=== PATIENT | female | born 1970 | race Caucasian/White ===

== ENCOUNTER → 2020-05-01 15:01 | Outpatient (BNVA) | payer MEDICAID, SELFPAY | PROVIDERS: PCP Internal Medicine; Visit Provider Surgery | DX: R92.8 Other abnormal and inconclusive findings on diagnostic imaging of breast (principal); K21.9 Gastro-esophageal reflux disease without esophagitis; Z88.0 Allergy status to penicillin; Z79.899 Other long term (current) drug therapy | CPT/HCPCS: 99212 ==

== ENCOUNTER 2020-05-22 08:42 | Outpatient (REF) | payer MEDICAID, SELFPAY ==
--- NOTE | 2020-05-22 08:51 | MM_ITS ---
EXAMINATION: MM DIAGNOSTIC DIGITAL BREAST TOMOSYNTHESIS, BILATERAL US DIAGNOSTIC ULTRASOUND BREAST, LEFT CLINICAL INFORMATION: Stereotactic biopsy left upper outer breast for architectural distortion 10/25/2018 (benign breast parenchyma with florid usual ductal hyperplasia, fibrocystic changes, focal adenosis, columnar cell change and fibrosis, microcalcifications identified). Biopsy was considered possibly discordant from imaging expectations. Open surgical biopsy recommended but declined by patient and family. Due for yearly exam. The lifetime risk of breast cancer based on the Tyrer-Cuzick Model is 15%. COMPARISON: Mammography: 10/09/2019, 04/18/2019, 10/25/2018 (post stereotactic), 10/05/2018, 03/23/2018 TECHNIQUE: Digital breast tomosynthesis is performed in both the craniocaudal and mediolateral oblique views along with computer-aided detection (CAD). Synthesized 2D images are generated from the tomosynthesis. Additional right MLO view is provided. Ultrasound left breast is targeted to the outer quadrant. Grayscale imaging and color Doppler are performed without and with harmonics. FINDINGS: The breasts are heterogeneously dense, which may obscure small masses (ACR BI-RADS breast composition Category c). Breast tissue composition borders on average fibroglandular. Neither breast shows interval mass or architectural abnormality or interval abnormal calcifications. The skin contours are smooth. Architectural changes upper outer left breast with central biopsy clip marker is stable. There is no developing density or increasing architectural change. There is also a biopsy clip marker again seen anterior 12:30 o'clock left breast. Targeted ultrasound left breast demonstrates stable postbiopsy changes with specular echo and posterior shadowing corresponding to the biopsy clip marker and biopsy site. There is no interval mass or interval architectural abnormality. No focal duct ectasia. Results are discussed with the patient at time of visit. Management plan is for diagnostic mammography and targeted left breast ultrasound at next bilateral annual exam, due in 12 months to complete long-term diagnostic surveillance. MM/MM diagnostic mammo BI IMPRESSION: 1. Left: Stable architectural changes with central biopsy clip marker outer left breast. 2. Right: No mammographic evidence of malignancy. ASSESSMENT: BI-RADS 3: Probably Benign RECOMMENDATION: 1. Diagnostic mammography at time of next annual exam, due in 12 months. 2. Targeted ultrasound left breast at time of annual diagnostic exam. This patient's information was entered into a reminder system with a target due date for their next mammogram.
== END 2020-05-22 08:43 | disposition home or self-care (01) ==
LOC: HO.MAMMO 08:42
PROVIDERS: Visit Provider Surgery
DX: R92.8 Other abnormal and inconclusive findings on diagnostic imaging of breast (principal)
CPT/HCPCS: 76642; 77066

== ENCOUNTER 2020-11-08 09:35 | Outpatient (REF) | payer MEDICAID, SELFPAY ==
[2020-11-08 11:54] LABS: Alanine Aminotransferase 24 U/L (0-31); Albumin Level 4.5 g/dL (3.5-5.0); Alkaline Phosphatase 47 U/L (39-117); Anion Gap 11 (12-20); Aspartate Amino Transferase 22 U/L (5-31); Bilirubin Total 0.5 mg/dL (0.0-1.0); Blood Urea Nitrogen 10 mg/dL (9-16); Calcium 9.9 mg/dL (8.4-10.2); Carbon Dioxide 27 mmol/L (22-29); Chloride 107 mmol/L (96-108); Cholesterol 200 mg/dL; Estimated Glomerular Filt Rate > 60; Glucose Random 93 mg/dL (60-115); HDL Cholesterol 50 mg/dL; LDL Cholesterol Calculated 131 mg/dl; Potassium 4.9 mmol/L (3.3-5.1); Sodium 140 mmol/L (135-145); Total Protein 6.9 g/dL (6.5-8.0); Triglycerides 96 mg/dL
[2020-11-08 11:58] LABS: Hematocrit 40.1 % (37-47); Hemoglobin 13.1 g/dl (12.0-16.0); Mean Corpuscular HGB Conc 32.7 g/dl (31.0-35.0); Mean Corpuscular Hemoglobin 29.6 pg (27.0-33.0); Mean Corpuscular Volume 90.7 fL (80-98); Mean Platelet Volume 9.8 fL (9.4-12.3); Platelet Count 402 X10*3/uL (160-400); Red Blood Count 4.42 X10*6/uL (4.20-5.50); Red Cell Distribution Width 13.3 % (11.0-16.0); White Blood Count 6.2 X10*3/uL (4.8-10.8)
[2020-11-08 12:16] LABS: Thyroid Stimulating Hormone 1.44 uIU/mL (0.32-4.0); Vitamin D 25-OH Total 46.2 ng/mL (>30)
[2020-11-08 12:17] LABS: Glucose Urine UA NEG (NEG); Leukocyte Esterase Urine NEG (NEG); Nitrite Urine NEG (NEG); PH 7.5 (5.0-8.0); Urine Blood NEG (NEG); Urine Ketones NEG (NEG); Urine Protein NEG (NEG-TRACE)
[2020-11-08 12:20] LABS: Appearance Urine HAZY; Color Urine YELLOW
[2020-11-11 07:54] LABS: ~HepC Num1 0.04 S/CO (0.00-0.79); ~Hepatitis C Antibody Nonreactive (Nonreactive)
== END 2020-11-08 09:36 | disposition home or self-care (01) ==
LOC: HO.LAB 09:35
PROVIDERS: Nurse Practitioner Family; Absent Provider Internal Medicine; PCP Internal Medicine; Referring Provider Internal Medicine; Visit Provider Surgery
DX: Z00.00 Encounter for general adult medical examination without abnormal findings (principal); E78.2 Mixed hyperlipidemia; E66.3 Overweight; R35.0 Frequency of micturition; E55.9 Vitamin D deficiency, unspecified; R92.8 Other abnormal and inconclusive findings on diagnostic imaging of breast; Z88.0 Allergy status to penicillin; Z79.899 Other long term (current) drug therapy
CPT/HCPCS: 36415; 80053; 80061; 81003; 82306; 84443; 85027; 86803; 99212

== ENCOUNTER 2021-06-06 09:18 | Outpatient (REF) | payer MEDICAID, SELFPAY ==
--- NOTE | ~2021-06-06 | MM_ITS ---
EXAMINATION: MM DIAGNOSTIC DIGITAL BREAST TOMOSYNTHESIS, BILATERAL US DIAGNOSTIC ULTRASOUND BREAST, LEFT CLINICAL INFORMATION: Stereotactic biopsy left upper outer breast for architectural distortion 10/25/2018 (benign breast parenchyma with florid usual ductal hyperplasia, fibrocystic changes, focal adenosis, columnar cell change and fibrosis, microcalcifications identified). Biopsy was considered possibly discordant from imaging expectations. Open surgical biopsy recommended but declined by patient and family. Due for yearly exam. The lifetime risk of breast cancer based on the Tyrer-Cuzick Model is 11%. COMPARISON: Mammography: 05/22/2020, 10/09/2019, 04/18/2019, 10/25/2018 (post stereotactic), 10/05/2018, 03/23/2018. Ultrasound left breast 05/22/2020, 10/09/2019. TECHNIQUE: Digital breast tomosynthesis is performed in both the craniocaudal and mediolateral oblique views along with computer-aided detection (CAD). Synthesized 2D images are generated from the tomosynthesis. Ultrasound left breast is targeted to the upper outer quadrant. FINDINGS: The breasts are heterogeneously dense, which may obscure small masses (ACR BI-RADS breast composition Category c). Parenchymal pattern is similar to prior studies. There are scattered stable asymmetries. Right breast is unremarkable with no significant mass or architectural abnormality. Neither breast shows abnormal calcifications. The axilla and skin contours are unremarkable. The architectural changes posterior upper outer left breast are stable. There is a biopsy clip marker in the center of the architectural changes corresponding to the stereotactic sampling in 2019. There is also a ribbon shaped biopsy clip marker anterior upper outer left breast. There are some scattered punctate calcifications in the breast as before. Ultrasound left breast demonstrates specular echo within hypoechoic area with strong posterior shadowing corresponding to the biopsy clip marker and biopsy site and architectural changes. Appearance is similar to prior exams considering variation and transducer orientation. Results are discussed with the patient and family at time of visit. The lack of significant changes in the sampled area left breast is reassuring. Patient has upcoming appointment with surgeon this month. MM/MM tomosynthesis diagnostic BI IMPRESSION: 1. Left: Stable architectural changes upper outer left breast with central biopsy clip marker. 2. Right: No mammographic evidence of malignancy. ASSESSMENT: BI-RADS 2: Benign RECOMMENDATION: 1. Continue with surgical appointment planned for this month. 2. Annual bilateral mammography. This patient's information was entered into a reminder system with a target due date for their next mammogram.
== END 2021-06-06 09:19 | disposition home or self-care (01) ==
LOC: HO.MAMMO 09:18
PROVIDERS: PCP Internal Medicine; Visit Provider Surgery
DX: R92.8 Other abnormal and inconclusive findings on diagnostic imaging of breast (principal)
CPT/HCPCS: 76642; 77062; 77066

== ENCOUNTER → 2021-07-25 10:38 | Outpatient (BNVA) | payer MEDICAID, SELFPAY | PROVIDERS: PCP Internal Medicine; Referring Provider Internal Medicine; Visit Provider Surgery | DX: R92.8 Other abnormal and inconclusive findings on diagnostic imaging of breast (principal) | CPT/HCPCS: 99212 ==

== ENCOUNTER 2022-06-05 10:33 | Outpatient (REF) | payer MEDICAID, SELFPAY ==
--- NOTE | ~2022-06-05 | MM_ITS ---
EXAMINATION: MM SCREENING DIGITAL BREAST TOMOSYNTHESIS, BILATERAL CLINICAL INFORMATION: Screening. Asymptomatic. Stereotactic biopsy left upper outer breast for architectural changes 10/25/2018 (benign breast parenchyma with florid usual ductal hyperplasia, fibrocystic changes, focal adenosis, columnar cell change and fibrosis, microcalcifications identified). The lifetime risk of breast cancer based on the Tyrer-Cuzick Model is 11%. COMPARISON: Mammography: 06/06/2021, 05/22/2020, 10/09/2019, 04/18/2019, 10/05/2018, 03/23/2018 TECHNIQUE: Digital breast tomosynthesis is performed in both the craniocaudal and mediolateral oblique views along with computer-aided detection (CAD). Synthesized 2D images are generated from the tomosynthesis. FINDINGS: The breasts are heterogeneously dense, which may obscure small masses (ACR BI-RADS breast composition Category c). Parenchymal pattern is similar to prior exams and there is no interval mass or developing density or interval architectural changes. No abnormal calcifications. Left breast again has biopsy clip marker overlying stable architectural changes posterior upper outer quadrant. There is a clip marker also noted anterior upper outer left breast. The axilla and skin contours are unremarkable. MM/MM tomosynthesis screening BI IMPRESSION: No significant changes from prior studies. ASSESSMENT: BI-RADS 2: Benign RECOMMENDATION: Routine annual mammography screening. This patient's information was entered into a reminder system with a target due date for their next mammogram.
== END 2022-06-05 10:34 | disposition home or self-care (01) ==
LOC: HO.MAMMO 10:33
PROVIDERS: PCP Nurse Practitioner Family; Visit Provider Surgery
DX: Z12.31 Encounter for screening mammogram for malignant neoplasm of breast (principal)
CPT/HCPCS: 77063; 77067

== ENCOUNTER → 2022-08-21 09:43 | Outpatient (BNVA) | payer MEDICAID, SELFPAY | PROVIDERS: PCP Nurse Practitioner Family; Visit Provider Surgery | DX: R92.8 Other abnormal and inconclusive findings on diagnostic imaging of breast (principal) | CPT/HCPCS: 99212 ==

== ENCOUNTER → 2022-09-11 09:31 | Day surgery (SDC) | payer MEDICAID, SELFPAY ==
--- NOTE | 2022-09-10 10:50 | P.CONAN_ITS ---
Documented by User: Jessika Gomez NP 09/10/22 10:50 HPI - Anesthesia Eval Consult details Narrative: 52yo F for Colonoscopy [facility] Active Problems Active Problems: All Active Problems (Updated 05/01/20 @ 15:21 by Omid Redd, RN) Abnormal mammogram of left breast (Acute) Past Medical History Medical History GERD (gastroesophageal reflux disease) Overactive bladder Family History Family History Mother Diabetes Paternal Uncle Brain cancer Surgical History Surgical History History of epidermal inclusion cyst excision History of left breast biopsy Social History Social History Alcohol intake: never Patient Tobacco Use Status: Never used Tobacco Are you DNR?: No Advance Directives: No Advance Directives Information Provided: Yes Nutrition Risks: No Nutritional Risk Meds Allergies Allergy/AdvReac Type Severity Reaction Status Date / Time penicillin G Allergy Unknown vomiting Verified 09/11/22 10:19 Home Medications Medication Instructions Recorded Confirmed Last Taken Type loratadine 10 mg tablet (Claritin) 10 mg PO DAILY 05/01/20 08/21/22 Unknown History omeprazole 20 mg capsule,delayed 20 mg PO DAILY 05/01/20 08/21/22 Unknown History release tolterodine 2 mg capsule,extended 1 cap PO DAILY 09/10/22 09/10/22 Unknown History release 24 hr Exam Exam Date and Time: September 10, 2022 105 Assessment and Plan Assessment Anesthesia Assessment: Chart Reviewed Documented by User: Roseline Harding MD 09/11/22 11:20 [facility] Past Medical History Medical History GERD (gastroesophageal reflux disease) Overactive bladder Family History Family History Mother Diabetes Paternal Uncle Brain cancer Surgical History Surgical History History of epidermal inclusion cyst excision History of left breast biopsy History of Problems with Anesthesia: No Social History Social History Alcohol intake: never Patient Tobacco Use Status: Never used Tobacco Are you DNR?: No Advance Directives: No Advance Directives Information Provided: Yes Nutrition Risks: No Nutritional Risk Meds Allergies Allergy/AdvReac Type Severity Reaction Status Date / Time penicillin G Allergy Unknown vomiting Verified 09/11/22 10:19 Home Medications Medication Instructions Recorded Confirmed Last Taken Type loratadine 10 mg tablet (Claritin) 10 mg PO DAILY 05/01/20 08/21/22 Unknown History omeprazole 20 mg capsule,delayed 20 mg PO DAILY 05/01/20 08/21/22 Unknown History release tolterodine 2 mg capsule,extended 1 cap PO DAILY 09/10/22 09/10/22 Unknown History release 24 hr Exam Airway Mallampati Class: III TM Dist: >3cm Neck ROM: Full Loose/Missing/Broken Teeth: No Heart: RRR Lungs: CTA Assessment and Plan Final Anesthetic Review History of Problems with Anesthesia: No NPO: Yes ASA Class: II Final Preanesthetic Review: Meds/Allgs Chart Reviewed, Consent Obtained/Reviewed and Anes Risks/Benef Reviewed Patient Risk: Low Procedure Risk: Low Anesthetic Plan Anesthetic Plan: MAC: Disposition: Standard PACU
[2022-09-11 10:07] VITALS: BMI 26.4
[2022-09-11] MEDS: Lactated Ringers 1,000 ML 100 ML IVCONT (10:32)
[2022-09-11 10:41] VITALS: BP 125/63; PULSE 73; RESP 18; TEMP 36.8; O2SAT 99
--- NOTE | 2022-09-11 11:19 | PC.NURSE ---
Per Jamey Romano, area director, anesthesia can write on their consent that patient denies any chance of and unable to urinate refusing u preg test. Patient states has a sporadic menstrual cycle and states has no boyfriend. Dr. Meaghan vera.
--- NOTE | 2022-09-11 11:19 | MHC.SHP ---
Pre-Procedural Eval Section A Date of Service: 09/11/22 Section B Chief Complaint: screening Details of Present Illness: see H&P no changes Relevant Family History (Specify if Yes): No Relevant Social History: None Present Medications: see Short Stay Collaborative assessment Medical History: No relevant PMH History of Previous Operations: No relevant previous surgery Allergies: Allergies Allergy/AdvReac Type Severity Reaction Status Date / Time penicillin G Allergy Unknown vomiting Verified 09/11/22 10:19 Review of Systems Sugical H&P ROS: Negative: Constitution, Cardiovascular, Respiratory, Neurological, Psychiatric, Hem-Onc, Allergic/Immunologic, Gastrointestinal, Genitourinary, Musculoskeletal, Integumentary, Endocrine and Eyes/Ears/Nose/Throat Exam Surgical H&P Exam: Normal: HEENT, Normal: Heart, Normal: Lungs, Normal: Extremities, Normal: Abdomen, Normal: Skin and Normal: Neurological Plan Diagnosis/Plan: Unchanged I have reviewed the history and physical and performed a pertinent physical examination on my patient. No changes have occurred unless specified. Time Spent With Patient Time: Total time managing care of this patient today ____ minutes.
[2022-09-11 11:50] VITALS: BP 99/54; PULSE 70; RESP 20; TEMP 36.7; O2SAT 99
--- NOTE | 2022-09-11 11:54 | PM.OP ---
Brief Operative Note Date of Service: 09/11/22 Pre-op diagnosis: screening Post-op diagnosis: same Procedure: colonoscopy Surgeon: José Rose Anesthesia: MAC Was an Cashier Ticket Selling used for this Procedure?: No Estimated blood loss (mL): 0 Pathology: none sent Condition: stable Disposition: PACU
[2022-09-11 12:12] VITALS: BP 108/67; PULSE 62; RESP 16; TEMP 36.7; O2SAT 100
--- NOTE | 2022-09-11 12:12 | OP_ITS ---
SURGEON: José Rose MD INDICATIONS: Colon cancer screening. PREOPERATIVE DIAGNOSIS: POSTOPERATIVE DIAGNOSIS: PROCEDURE PERFORMED: Colonoscopy to the terminal ileum. ESTIMATED BLOOD LOSS: COMPLICATIONS: ANESTHESIA: Monitored anesthesia care. ASSISTANTS: SPECIMENS: DESCRIPTION OF PROCEDURE: The procedure was performed on 09/11/2022. A history and physical was performed. The risks and benefits of the procedure were explained to the patient. Informed consent was obtained. The patient was placed in the left lateral decubitus position. A digital rectal exam was performed and was found to be normal. The Olympus pediatric video colonoscope was introduced into the rectum and advanced to the cecum without difficulty. The cecum was identified by transillumination, palpation, and identification of the ileocecal valve. Examination was performed. The scope was removed. She tolerated the procedure well and was returned to the recovery area in stable condition. FINDINGS: The terminal ileum was examined and appeared normal. The visualized colonic mucosa was normal. The quality of the prep was good. No polyps were identified. There was mild sigmoid diverticulosis. Retroflexed examination showed some hypertrophic anal papillae and small internal hemorrhoids. IMPRESSION: Normal colonoscopy. RECOMMENDATION: 1. Follow up as needed. 2. Repeat colonoscopy is recommended in 10 years for average risk individuals. MD SARABJIT Del Rio/DILMA / [id number]
== END | disposition home or self-care (01) ==
PROVIDERS: PCP Internal Medicine; Visit Provider Internal Medicine Gastroenterology
PROC: 0DJD8ZZ Inspection of Lower Intestinal Tract, Via Natural or Artificial Opening Endoscopic (ICD-10-PCS; CPT 45378; principal; 2022-09-11 11:00)
DX: Z12.11 Encounter for screening for malignant neoplasm of colon (principal); K57.30 Diverticulosis of large intestine without perforation or abscess without bleeding; K62.89 Other specified diseases of anus and rectum; K64.8 Other hemorrhoids; K21.9 Gastro-esophageal reflux disease without esophagitis; N32.81 Overactive bladder; Z79.899 Other long term (current) drug therapy; Z88.0 Allergy status to penicillin
CPT/HCPCS: 45378